=== PATIENT | female | born 1995 | race Caucasian/White ===

== ENCOUNTER 2019-09-21 21:35 | Emergency (ER) | payer OTHER ==
[~2019-09-21] VITALS: Ht 162.6 cm; Wt 70.3 kg
[2019-09-21 21:48] VITALS: BP 115/82
--- NOTE | 2019-09-21 21:58 | Emergency Room Report ---
History of Present Illness General Chief Complaint: Animal Bite Source: Patient Present Illness HPI Is a 24-year-old female with no past medical history. She presents with chief plaint of dog bite to her face. This occurred just prior to arrival. It is her pet dog. She said that is been getting aggressive lately. It was on her lap and then it jumped up and bit her on the face. She sustained a laceration underneath her right eye. It was bleeding but stopped now. She also has abrasion to the bridge of her nose. She also has some pain to the lateral aspect of the upper eyelid. No blurry vision. No eye pain. Allergies: Coded Allergies: No Known Allergies (Unverified , 09/21/19) Patient History Past Medical History: see triage record, old chart reviewed Past Surgical History: none Pertinent Family History: none Social History: Denies: smoking Last Menstrual Period: 09/09/19 Now: No Immunizations: other Reviewed Nursing Documentation: PMH: Agreed; PSxH: Agreed Nursing Documentation-PMH Past Medical History: No Stated History Review of Systems Eye: Denies: eye pain, blurred vision ENT: Denies: ear pain, nose congestion, throat swelling Respiratory: Denies: cough, shortness of breath Cardiovascular: Denies: chest pain, palpitations Gastrointestinal: Denies: abdominal pain, diarrhea, nausea, vomiting Musculoskeletal: Denies: back pain, joint pain Skin: Denies: rash Neurological: Denies: headache, numbness Endocrine: Denies: increased thirst, increased urine Hematologic/Lymphatic: Denies: easy bruising All Other Systems: negative except mentioned in HPI Physical Exam Vital Signs Date Time Temp Pulse Resp B/P (MAP) Pulse Ox O2 Delivery O2 Flow Rate FiO2 09/21/19 21:37 98.1 77 26 111/ 98 Room Air Vitals normal Sp02 EP Interpretation: reviewed, normal General Appearance: well appearing, no apparent distress, alert Head: normocephalic, atraumatic Eyes: bilateral eye PERRL, bilateral eye EOMI, bilateral eye other - Periorbital ecchymosis to the lateral aspect of the right eye. 1 cm laceration to the lower aspect of the eyelid and facial area. Well approximated. No foreign body. ENT: hearing grossly normal, normal pharynx, other - Abrasion to bridge of nose on the left. No laceration. Neck: full range of motion, supple, no meningismus Respiratory: chest non-tender, lungs clear, normal breath sounds Cardiovascular #1: regular rate, rhythm, no murmur Gastrointestinal: normal bowel sounds, non tender, no mass, no organomegaly, no bruit, non-distended Musculoskeletal: back normal, normal range of motion, gait/station normal Psychiatric: mood/affect normal Medical Decision Making Diagnostic Impression: Primary Impression: Dog bite of face Qualified Codes: S01.85XA - Open bite of other part of head, initial encounter ; W54.0XXA - Bitten by dog, initial encounter Additional Impression: Laceration of face Qualified Codes: S01.81XA - Laceration without foreign body of other part of head, initial encounter ER Course Patient with a superficial soft tissue injury and laceration of the face from a dog bite. Low risk for infection but will put her on antibiotics. Family dog so shots are up-to-date. The dog is aggressive because getting older and more confused per patient. Last Vital Signs Date Time Temp Pulse Resp B/P (MAP) Pulse Ox O2 Delivery O2 Flow Rate FiO2 09/21/19 21:48 98.1 85 24 115/82 97 Room Air Status: improved Disposition: HOME, SELF-CARE Condition: Stable Scripts Amoxicillin/Potassium Clav 875-125* (AUGMENTIN 875-125 TABLET*) 1 Each Tablet 1 TAB ORAL TWICE A DAY, #14 TAB Prov: Henri Bond MD 09/21/19 Patient Instructions: Animal Bite Additional Instructions: Keep wound clean. Follow-up with your doctor in 7 days. Return if worse. Henri Bond MD Sep 21, 2019 21:58
[2019-09-21] MEDS ORDERED: Tetanus/Diptheria/Pertussis IM ONE (22:00)
[2019-09-21] MEDS ORDERED: AUGMENTIN 875-1 EAC1 ORAL (22:07)
[2019-09-21 22:34] VITALS: BP 118/85
== END 2019-09-21 22:34 | disposition home or self-care (01) ==
LOC: EMR 22:17
DX: S01.111A Laceration without foreign body of right eyelid and periocular area, initial encounter (principal); S01.81XA Laceration without foreign body of other part of head, initial encounter; W54.0XXA Bitten by dog, initial encounter; Y92.9 Unspecified place or not applicable; Z23 Encounter for immunization
CPT/HCPCS: 90471; 90715; 99282